=== PATIENT | female | born 1955 | race Caucasian/White ===

== ENCOUNTER → 2016-07-04 | Outpatient (CLI) | payer BC ==
[2016-07-04 14:23] VITALS: BP 140/75; PULSE 80; RESP 14; TEMP 97.5; BMI 42.0
--- NOTE | 2016-07-04 14:36 | P.HPBAR ---
Bariatric H&P - History & Physicial H&P Date: 07/04/16 History & Physicial: Visit/CC: BAND F/U Patient initial contact: Initial weight: 121.563 kg Initial weight in pounds: 268.00 Height: 5 ft 7 in Initial BMI: 42.0 Last weight: Current weight: 121.563 kg Current weight in pounds: 268.00 Current BMI: 42.0 [place] body weight (based on NIH guidelines): 61.235 kg Excess body weight loss: 0.0% The patient is a 61 year-old F who presents for Bariatric Assessment. The patient has complaints of hunger. She's had some weight gain. Past Medical History Past Medical History: GERD/Reflux, Hypertension, Osteoarthritis (OA) History of Any Multi-Drug Resistant Organisms: None Reported Past Surgical History: Bariatric Surgery, Hysterectomy, Orthopedic Surgery Additional Past Surgical History / Comment(s): lap band, maynor carpal tunnel, maynor knee replacement Past Anesthesia/Blood Transfusion Reactions: Postoperative Nausea & Vomiting ( PONV) Past Psychological History: Depression Smoking Status: Former smoker Surgical - Exam Vital Signs Temp Pulse Resp BP 97.5 F L 80 14 140/75 07/04/16 14:13 07/04/16 14:13 07/04/16 14:13 07/04/16 14:13 - General well developed, no distress - Eyes PERRL - ENT normal pinna - Neck no masses - Respiratory normal expansion - Cardiovascular Rhythm: regular - Abdomen Abdomen: soft, non tender Bariatric Assessment & Plan Plan: The patient had her [place] adjusted. 1 mL was added to her LAP-BAND. She currently has 1 mL in the band. She was able to water without difficulty. She' ll follow-up in one month. Bariatric Checklist Checklist: Plan: Checklist: EGD: 1. Hiatal hernia: 2. H. Pylori: HgbA1c: Vitamin D: Smoking: Former smoker Primary care physician referral: ROBERT DE LEON ([facility] ) Psychiatry clearance: Cardiology clearance: Sleep study: Diet journal: VTE risk score: VTE risk level: Rehab needs at discharge:
== END | disposition home or self-care (01) ==
LOC: BARWHC3 13:38
PROVIDERS: ATTEND Surgery
DX: Z48.815 Encounter for surgical aftercare following surgery on the digestive system (principal); Z68.41 Body mass index [BMI] 40.0-44.9, adult; Z87.891 Personal history of nicotine dependence; Z98.84 Bariatric surgery status
CPT/HCPCS: 99212